=== PATIENT | male | born 1990 | race Caucasian/White ===

== ENCOUNTER → 2023-08-11 | Outpatient (CLI) | payer OTHER ==
--- NOTE | 2023-08-13 20:32 | CA ---
Transthoracic Echo Report Name: Jerry Manzo Age: 33 Gender: M : 1990 Exam Date: 08/11/2023 16:50 Exam Location: [facility] Ht (in): 69 Wt (lb): 206 Ordering Physician: Willi Hanson MD Attending/Referring Phys: [employer] Operations Manager Mariposa Mack RDCS Procedure CPT: Indications: R94.31 abn ekg Cardiac Hx: Technical Quality: Excellent Contrast 1: Total Dose (mL): Contrast 2: Total Dose (mL): MEASUREMENTS (Male / Female) Normal Values 2D ECHO LV Diastolic Diameter PLAX 5.1 cm 4.2 - 5.9 / 3.9 - 5.3 cm LV Systolic Diameter PLAX 3.3 cm IVS Diastolic Thickness 1.1 cm 0.6 - 1.0 / 0.6 - 0.9 cm LVPW Diastolic Thickness 1.1 cm 0.6 - 1.0 / 0.6 - 0.9 cm LV Relative Wall Thickness 0.4 RV Internal Dim ED PLAX 3.0 cm LA Systolic Diameter LX 3.1 cm 3.0 - 4.0 / 2.7 - 3.8 cm LV Diastolic Volume MOD 4C 132.3 cm??? LV Systolic Volume MOD 4C 49.4 cm??? LV Ejection Fraction MOD 4C 62.7 % LV Cardiac Index MOD 4C 3457.7 cm???/min???m??? LV Diastolic Length 4C 8.9 cm LV Systolic Length 4C 7.8 cm LV Diastolic Volume MOD 2C 190.8 cm??? LV Systolic Volume MOD 2C 70.7 cm??? LV Ejection Fraction MOD 2C 62.9 % LV Cardiac Index MOD 2C 5009.0 cm???/min???m??? LV Diastolic Length 2C 10.1 cm LV Systolic Length 2C 8.0 cm LA Volume 69.1 cm??? 18 - 58 / 22 - 52 cm??? LA Volume Index 32.0 cm???/m??? 16 - 28 cm???/m??? M-MODE Aortic Root Diameter MM 3.6 cm MV E Point Septal Separation 0.2 cm AV Cusp Separation MM 2.7 cm DOPPLER AV Peak Velocity 173.1 cm/s AV Peak Gradient 12.0 mmHg MV Area PHT 3.8 cm??? Mitral E Point Velocity 116.5 cm/s Mitral A Point Velocity 88.5 cm/s Mitral E to A Ratio 1.3 MV Deceleration Time 201.3 ms MV E' Velocity 10.9 cm/s Mitral E to MV E' Ratio 10.7 FINDINGS Left Ventricle Left ventricular ejection fraction is estimated at 60-65 %. Left ventricular cavity size normal. Left ventricular wall thickness normal. Right Ventricle Normal right ventricular size. Right ventricular systolic pressure within normal limits. Unable to estimate the right ventricular systolic pressure. Right Atrium Normal right atrial size. Left Atrium Mildly increased left atrial volume. Mildly increased left atrial area. Mitral Valve Structurally normal mitral valve. Trace mitral regurgitation. Aortic Valve Trileaflet aortic valve. No aortic valve stenosis or regurgitation. Tricuspid Valve Structurally normal tricuspid valve. No tricuspid stenosis, regurgitation or prolapse. Pulmonic Valve Structurally normal pulmonic valve. No pulmonic regurgitation. Pericardium No pericardial effusion. Aorta Normal size aortic root and proximal ascending aorta. CONCLUSIONS Normal LV size and systolic function. EF estimated at 60% No obvious regional wall motion abnormality No significant valvular dysfunction no pericardial effusion Previewed by: Dr Jose Daniel Iyer (Electronically Signed) Final Date: 13 August 2023 20:31
== END | disposition home or self-care (01) ==
LOC: RADECHMAIN 16:49
PROVIDERS: ATTEND Family Medicine
DX: R01.1 Cardiac murmur, unspecified (principal); R94.31 Abnormal electrocardiogram [ECG] [EKG]
CPT/HCPCS: 93306

== ENCOUNTER → 2023-08-31 | Outpatient (CLI) | payer BC ==
--- NOTE | 2023-08-31 19:45 | US ---
EXAMINATION TYPE: US thyroid st tissue head/neck DATE OF EXAM: 08/31/2023 COMPARISON: NONE CLINICAL INDICATION: Male, 33 years old with history of E05.90 THYROTOXICOSIS, UNSP WITHOUT THYROTOXI C CRI; GLAND SIZE: Right Lobe: 5.7 x 1.9 x 2.0 cm Overall Parenchyma: Grossly heterogeneous Left Lobe: 5.5 x 2.2 x 2.5 cm Overall Parenchyma: Grossly heterogeneous Isthmus Thickness: 0.26 cm NODULES RIGHT: # of nodules measured on right: 0 LEFT: # of nodules measured on left: 0 ISTHMUS: # of nodules measured in the isthmus: 0 Bilateral neck scanned, no evidence of lymphadenopathy. Grossly heterogeneous echotexture bilaterally IMPRESSION: Heterogenous thyroid gland without focal nodules. Correlate with serum markers for thyroiditis.
== END | disposition home or self-care (01) ==
LOC: RADUSWWP 16:54
PROVIDERS: ATTEND Family Medicine
DX: E05.90 Thyrotoxicosis, unspecified without thyrotoxic crisis or storm (principal)
CPT/HCPCS: 76536

== ENCOUNTER → 2023-09-18 | Outpatient (CLI) | payer BC ==
--- NOTE | 2023-09-18 10:40 | CA ---
Exercise Stress Test Report Name: Jerry Manzo Exam Date: 09/18/2023 09:58 Exam Location: [facility] Ht (in): 69 Wt (lb): 206 BSA: 2.09 Ordering Phys: Willi Hanson MD Referring Phys: GALLO, Technologist: Niko Mayers Age: 33 Gender: M : 1990 Procedure CPT: Indications: R94.31 ABNORMAL EKG ICD-10 Codes: Patient History: Medications: Meds past 24 hrs: Pretest Chest Pain: STRESS TEST Moreno Protocol Exercise Duration (min:sec): 12:[address] Depressions (mm): Angina Score: Figueroa Score: Resting HR (bpm): 96 Peak HR (bpm): 184 Resting BP (mmHg): 134 / 86 Peak BP (mmHg): 176 / 91 MPHR: 187 Target HR: 159 % MPHR: 98 METS: 12.1 Total Dose: Peak Dose: Atropine: Double Product: [id number] BP Response: Stress Termination: Reached target heart rate Stress Symptoms: No chest pain or symptoms Stress Summary: ECG ANALYSIS Resting ECG: Sinus rhythm with left bundle branch block Stress ECG: Patient exercised on Moreno protocol for 12 minutes achieving 13 mets 85% of predicted maximal heart rate without chest pain EKG changes were inconclusive CONCLUSIONS Excellent exercise tolerance Inconclusive EKG part of the stress test due to baseline EKG abnormalities Dr. Jose Millan MD (Electronically Signed) Final Date: 18 September 2023 10:39
--- NOTE | 2023-09-18 11:59 | NM ---
EXAMINATION TYPE: NM stress cardiolite complete DATE OF EXAM: 09/18/2023 COMPARISON: NONE CLINICAL INDICATION: Male, 33 years old with history of R94.31 abnormal EKG; TECHNIQUE: After the intravenous administration of 9.9 mCi Tc 99m Sestamibi - Rest images obtained 4 5 minutes post injection. The patient exercised using a HAYDEN protocol and 1 minute prior to peak e xercise was injected with 24.9 mCi Tc 99m Sestamibi - Stress images obtained 30 minutes post injectio n. FINDINGS: Targeted heart rate (159 bpm) was achieved during performance of the study (182 bpm achieved). Total exercise time 12 minutes. Review of stress and rest SPECT images demonstrates some fixed decreased pe rfusion along the mid to basal inferoseptal wall most suggestive of diaphragmatic attenuation artifac t. No distinct perfusion abnormality otherwise seen. Gated analysis shows normal wall motion with an estimated left ventricular ejection fraction of 71 %. TID this calculated at 0.62, within normal li mits. IMPRESSION: No scintigraphic evidence for reversible ischemia
== END | disposition home or self-care (01) ==
LOC: RADNMMAIN 08:05
PROVIDERS: ATTEND Family Medicine
DX: R94.31 Abnormal electrocardiogram [ECG] [EKG] (principal)
CPT/HCPCS: 93017; 78452; A9500